=== PATIENT | male | born 1930 | race Caucasian/White ===

== ENCOUNTER 2018-02-11 12:04 | Observation (INO) | payer MEDICARE ==
[2018-02-11] MEDS ORDERED: ONDANSETRON HCL IV 4 MG/2 ML VIAL IV ONE (12:41)
[2018-02-11] MEDS ORDERED: SODIUM CHLORIDE 0.9% 500 ML IV ONE (12:41)
[2018-02-11] MEDS ORDERED: ONDANSETRON HCL IV 4 MG/2 ML VIAL IVP ONE (12:42)
[2018-02-11] MEDS ORDERED: HYDROMORPHONE HCL 2 MG/ML VIAL IVP ONE ×2 (12:42→15:01)
--- NOTE | 2018-02-11 12:45 | Emergency Department Record ---
History of Present Illness - General Chief Complaint: Abdominal Pain Stated Complaint: ABDOMINAL PAIN Time Seen by Provider: 02/11/18 12:38 Source: Patient Mode of Arrival: Ambulatory Limitations: No limitations - History of Present Illness Initial Comments: The patient is here due to AP for 16 hours. The pain is an aching cramping pain around the umbilicus which is nonradiating. He has had nausea and vomiting with it but no dysuria, or back pain. 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 The onset of the pain was after eating. He also has not taken any of his BP medicines today. MD Complaint: Abdominal pain Onset/Timin -: Hour(s) Location: Periumbilical Severity scale (1-10): 7 Quality: Aching, Dull Consistency: Constant Improves With: Nothing Worsens With: Nothing - Related Data Home Medications Medication Instructions Recorded Confirmed Last Taken Aspirin/Dipyridamole [Aggrenox 25 1 each PO BID 02/11/18 02/11/18 Unknown mg-200 mg Capsule] Ergocalciferol (Vitamin D2) 50,000 unit PO WEEKLY 02/11/18 02/11/18 Unknown [Vitamin D2] Finasteride [Proscar] 5 mg PO DAILY 02/11/18 02/11/18 Unknown Isosorbide Mononitrate [Imdur] 20 mg PO BID 02/11/18 02/11/18 Unknown Losartan Potassium [Cozaar] 50 mg PO DAILY 02/11/18 02/11/18 Unknown Metoprolol Tartrate [Lopressor] 50 mg PO BID 02/11/18 02/11/18 Unknown Simvastatin [Zocor] 40 mg PO QHS 02/11/18 02/11/18 Unknown Tamsulosin HCl [Flomax] 0.4 mg PO DAILY 02/11/18 02/11/18 Unknown Tiotropium Br/Olodaterol HCl 2 puff IH DAILY 02/11/18 02/11/18 Unknown [Stiolto Respimat Inhal [place]] Allergies Allergy/AdvReac Type Severity Reaction Status Date / Time No Known Drug Allergies Allergy Verified 02/11/18 12:25 Travel Screening - Travel/Exposure Within Last 30 Days Have you traveled within the last 30 days?: No - Travel/Exposure Within Last Year Have you traveled outside the [place] in the last year?: Yes Location Detail:: [place] - Additonal Travel Details Have you been exposed to anyone with a communicable illness?: No - Travel Symptoms Symptom Screening: None, Vomiting Review of Systems Constitutional: Denies: Chills, Fever Eyes: Denies: Eye discharge ENT: Denies: Congestion Respiratory: Denies: Cough, Dyspnea Past Medical History - SOCIAL HISTORY Smoking Status: Never smoker Alcohol Use: None Drug Use: None - RESPIRATORY Hx Respiratory Disorders: Yes Hx Pneumonia: Yes - CARDIOVASCULAR Hx Cardio Disorders: Yes Hx Hypertension: Yes Comment:: Disecting Aortal Anerysm. - NEURO Hx Neuro Disorders: No - GI Hx GI Disorders: No - Hx Genitourinary Disorders: Yes Hx Prostate Problems: Yes - ENDOCRINE Hx Endocrine Disorders: No - MUSCULOSKELETAL Hx Musculoskeletal Disorders: No - PSYCH Hx Psych Problems: No - HEMATOLOGY/ONCOLOGY Hx Hematology/Oncology Disorders: No Family Medical History Any Significant Family History?: No Physical Exam - General General Appearance: Alert, Oriented x3, Cooperative, No acute distress - Head Head exam: Atraumatic, Normocephalic, Normal inspection - Eye Eye exam: Normal appearance, PERRL - Neck Neck exam: Normal inspection, Full ROM. negative: Tenderness - Respiratory Respiratory exam: Normal lung sounds bilaterally. negative: Respiratory distress - Cardiovascular Cardiovascular Exam: Regular rate, Normal rhythm, Normal heart sounds - GI/Abdominal GI/Abdominal exam: Soft, Normal bowel sounds, Tenderness (There is mild mid abdominal and RUQ tenderness with with mild distension.). negative: Rebound, Rigid - Extremities Extremities exam: Normal inspection, Full ROM, Normal capillary refill, Other ( DP pulses are 2+ and equal bilaterally.). negative: Tenderness Course Vital Signs 02/11/18 12:06 Temperature 97.8 F Pulse Rate 91 H Respiratory 18 Rate Blood Pressure 180/117 Pulse Ox 94 L - Reevaluation(s) Reevaluation #1: The patient is doing well at this time. His pain is improved. I did discuss the CT with the Radiologist and it appears the patient has signs of Cholecystitis. 02/11/18 14:53 Reevaluation #2: I did discuss the CT results with Dr. Baca. He will admit the patient overnight for surgery tomorrow. 02/11/18 15:18 Medical Decision Making - Data Complexity MDM Data: Labs Ordered and/or Reviewed, X-Ray Ordered and/or Reviewed - Lab Data Result diagrams: 02/11/18 12:56 02/11/18 12:56 - Radiology Data Radiology results: Report reviewed (Abd CT: GB wall thickening with pericholecystic fluid and small stones, consistent with acute Choly. Type B dissection (chronic). CXR: Neg for acute dz.) Disposition Disposition: Admit Clinical Impression: Cholecystitis Disposition: Still a Patient at [facility] Decision to Admit: Admit from ER Decision to Admit Date: 02/11/18 Decision to Admit Time: 15:36 Accepting Physician: Keven Time Discussed w/Accepting Physician: 15:37 Condition: (2) Stable Time of Disposition: 15:37 Quality - Quality Measures Quality Measures: N/A - Blood Pressure Screening View Details: Yes Does Patient Have Any of the Following: Active Dx of HTN Blood Pressure Classification: Hypertensive Reading Systolic Measurement: 180 Diastolic Measurement: 117 Screening for High Blood Pressure: Patient Exclusion, Hx of HTN [G9744]
[2018-02-11 13:08] LABS: HEMATOCRIT 48.5 % (42.0-52.0); HEMOGLOBIN 16.7 gm/dl (14.0-18.0); MEAN CELL VOLUME 93.4 fl (81-97); MEAN CORPUSCULAR HEMOGLOBIN 32.2 pg (27-33); MEAN CORPUSCULAR HGB CONC 34.4 g/dl (32-36); MEAN PLATELET VOLUME 11.6 fl (7.4-10.4); PLATELET COUNT 182 K/uL (130-400); RED BLOOD COUNT 5.19 M/uL (4.40-5.70); RED CELL DISTRIBUTION WIDTH 12.7 % (11.5-14.5); WHITE BLOOD COUNT W/O DIFF 14.5 K/uL (4.2-12.2)
[2018-02-11 13:17] LABS: BLOOD UREA NITROGEN 20 mg/dL (8-23); EST GLOMERULAR FILTRATION RATE > 60 mL/min; TOTAL PROTEIN 7.6 g/dL (6.6-8.7)
[2018-02-11 13:18] LABS: INR 1.1; PARTIAL THROMBOPLASTIN TIME 27.5 SECONDS (24.5-39.1); PROTHROMBIN TIME (PATIENT) 10.7 SECONDS (9.5-12.1)
[2018-02-11 13:19] LABS: GLUCOSE,RANDOM 132 mg/dL (74-109)
[2018-02-11] MEDS ORDERED: METOPROLOL TART 50 MG TABLET PO ONE (13:20)
[2018-02-11 13:22] LABS: ALBUMIN 4.3 g/dL (4.0-5.0); ALKALINE PHOSPHATASE 80 U/L (40-129); ALT/SGPT 11 U/L (<41); AST/SGOT 16 U/L (10.0-50.0); LIPASE 35 U/L (13-60)
[2018-02-11 13:23] LABS: BILIRUBIN,DIRECT < 0.2 mg/dL (0-0.3)
[2018-02-11] MEDS ORDERED: LOSARTAN POTASSIUM 25 MG TABLET PO ONE (13:23)
[2018-02-11] MEDS ORDERED: LOSARTAN POTASSIUM 25 MG TABLET PO SCH (13:30)
[2018-02-11 14:12] LABS: URINE APPEARANCE SL CLOUDY; URINE BILIRUBIN NEGATIVE (NEGATIVE); URINE BLOOD SMALL (NEGATIVE); URINE COLOR YELLOW; URINE GLUCOSE (UA) NEGATIVE (NEGATIVE); URINE KETONE 40 mg/dL (NEGATIVE); URINE LEUKOCYTE ESTERASE NEGATIVE (NEGATIVE); URINE NITRITE NEGATIVE (NEGATIVE); URINE UROBILINOGEN 0.2 E.U./dL (0.20 - 1.00)
[2018-02-11 14:18] LABS: URINE BACTERIA NONE SEEN; URINE EPITHELIAL CELLS 0 - 2 (FEW); URINE MUCUS LIGHT; URINE WBC 0 - 2 (0-2/hpf)
[2018-02-11] MEDS ORDERED: 0.9 % SODIUM CHLORIDE 1,000 ML BAG IV ONE (15:01)
[2018-02-11] MEDS ORDERED: LIDOCAINE 2% MDV (20MG/ML) 20ML VIAL IV ONE (16:17)
[2018-02-11] MEDS ORDERED: PROPOFOL 10 MG/ML VIAL IV ONE (16:17)
[2018-02-11] MEDS ORDERED: DESFLURANE 240 ML BTL INH ONE (16:17)
[2018-02-11] MEDS ORDERED: ROCURONIUM BROMIDE 50MG/5ML VIAL IV ONE (16:17)
[2018-02-11] MEDS ORDERED: SUGAMMADEX SODIUM 200 MG/2 ML VIAL IV ONE ×2 (16:17)
[2018-02-11] MEDS ORDERED: PNEUM 13-VAL/PF 0.5 ML IM ONE (16:56)
[2018-02-11] MEDS ORDERED: HYDROMORPHONE HCL 2 MG/ML VIAL IV PRN (16:57)
[2018-02-11] MEDS ORDERED: ONDANSETRON HCL IV 4 MG/2 ML VIAL IVP PRN (16:57)
[2018-02-11] MEDS: 0.9 % SODIUM CHLORIDE 1000ML 1,000 ML IV PRN (17:29)
[2018-02-11] MEDS: CEFOTETAN DISODIUM 1 G in 0.9 % SODIUM CHLORIDE 100ML 100 ML IVPB SCH (17:36)
[2018-02-11] MEDS: STIOLTO RESPIMAT MC SCH (18:35)
[2018-02-11] MEDS: PROSCAR 5 MG MC SCH (18:35)
[2018-02-11] MEDS: ISOSORBIDE MONONITRATE 20 MG TABLET PO SCH (22:06)
[2018-02-11] MEDS: METOPROLOL TART 50 MG TABLET PO SCH (22:06)
[2018-02-12] MEDS: CEFOTETAN DISODIUM 1 G in 0.9 % SODIUM CHLORIDE 100ML 100 ML IVPB SCH (04:26)
[2018-02-12] MEDS: 0.9 % SODIUM CHLORIDE 1000ML 1,000 ML IV PRN (04:28)
--- NOTE | 2018-02-12 07:40 | CT SCAN REPORT ---
EXAM: POST CONTRAST CT OF THE ABDOMEN AND PELVIS HISTORY: PERIUMBILICAL ABDOMINAL PAIN, KNOWN HISTORY OF DISSECTING AORTIC ANEURYSM. TECHNIQUE: Post contrast CT of the abdomen and pelvis was obtained, Omnipaque 300 intravenous contrast agent utilized. Comparison: Noncontrast CT chest 03/20/17. FINDINGS: Bibasilar atelectasis. Aortic valve calcification, partially seen. The gallbladder appears distended with suggestion of mild wall thickening, pericholecystic fat stranding, and small internal densities possibly representing stones. Unremarkable appearance of the liver and spleen. No definite dilatation of the common bile duct. The adrenal glands appear unremarkable. Minimal fatty atrophy of the pancreas. Symmetric renal perfusion. No hydronephrosis. Sigmoid colon diverticulosis without evidence of acute diverticulitis. Normal appendix. No focal colonic thickening or inflammatory changes. Scattered colonic stool. The stomach and small bowel are nondilated. No free air or free fluid in the abdomen or pelvis. Prominent appearing prostate gland. The urinary bladder is mildly distended. There is an aortic dissection extending from the descending thoracic aorta ( incompletely visualized) and extending along the entire course of the abdominal aorta and along the right common iliac artery, right external iliac artery, to the level of the right common femoral artery. Aneurysmal dilatation of the dissected aorta, measuring approximately 3.9 cm AP x 4.8 cm transverse at the level of the diaphragm, 3.4 x 2.7 cm at the level of the renal arteries, and 5.6 x 4.7 cm at the infrarenal segment. 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 There is partial thrombosis along the course of what appears to represent the false lumen. The celiac, superior mesenteric, and inferior mesenteric arteries arise from the true lumen. Both renal arteries appear to arise from the true lumen. There is prominent plaque extending into the proximal superior mesenteric artery with likely less than 50% stenosis. The remainder of the abdominal arteries appear patent. Multilevel thoracolumbar spine degenerative changes. No definite acute osseous findings. IMPRESSION: 1. SUGGESTION OF CHOLELITHIASIS WITH GALLBLADDER WALL THICKENING AND PERICHOLECYSTIC FAT STRANDING; APPEARANCE SUSPICIOUS FOR ACUTE CHOLECYSTITIS. THIS COULD BE FURTHER CHARACTERIZE WITH ULTRASOUND. 2. 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 THE SUPRARENAL ABDOMINAL AORTA APPEARS SIMILAR IN CALIBER FROM NONCONTRAST CT COMPARISON ON 03/20/17. NO OTHER RELEVANT COMPARISONS ARE AVAILABLE. 3. SIGMOID COLON DIVERTICULOSIS WITHOUT EVIDENCE OF ACUTE DIVERTICULITIS. JOB NUMBER: [id number] [facility]
--- NOTE | 2018-02-12 07:43 | RADIOLOGY REPORT ---
EXAM: CHEST, TWO VIEWS HISTORY: UNPRODUCTIVE COUGH FOR TWO WEEKS. TECHNIQUE: Two views of the chest were obtained. Comparison: 09/14/16. FINDINGS: The heart is not enlarged. There is aortic ectasia and tortuosity. Atherosclerotic calcifications. No focal consolidation or pleural effusion. Calcified pleural plaques are noted. IMPRESSION: NO ACUTE PROCESS. CALCIFIED PLEURAL PLAQUES. JOB NUMBER: [id number] [facility]
[2018-02-12] MEDS ORDERED: METOCLOPRAMIDE 10 MG TABLET PO ONE (08:05)
[2018-02-12] MEDS ORDERED: FAMOTIDINE 20MG TABLET PO ONE (08:05)
[2018-02-12] MEDS ORDERED: MECLIZINE 25 MG TABLET PO ONE (08:06)
[2018-02-12] MEDS ORDERED: ACETAMINOPHEN 1,000 MG/100 ML BTL IVPB ONE (08:07)
[2018-02-12] MEDS: METOPROLOL TART 50 MG TABLET PO SCH (09:27)
[2018-02-12] MEDS: ISOSORBIDE MONONITRATE 20 MG TABLET PO SCH (09:28)
[2018-02-12] MEDS ORDERED: PANTOPRAZOLE SODIUM IV 40 MG VIAL IV SCH (10:00)
[2018-02-12] MEDS ORDERED: TAMSULOSIN HCL 0.4 MG CAP.ER.24H PO SCH (10:00)
[2018-02-12] MEDS ORDERED: LOSARTAN POTASSIUM 25 MG TABLET PO SCH (10:00)
[2018-02-12] MEDS: PROSCAR 5 MG MC SCH (10:01)
[2018-02-12] MEDS: STIOLTO RESPIMAT MC SCH (10:01)
[2018-02-12] MEDS ORDERED: IPRATROPIUM/ALBUTEROL (0.5MG/3MG) NEB INH ONE (11:31)
[2018-02-12] MEDS ORDERED: HYDROMORPHONE HCL 2 MG/ML VIAL IVP PRN (12:20)
[2018-02-12] MEDS ORDERED: HYDROCODONE/APAP 5/325MG TABLET PO PRN ×2 (12:20)
[2018-02-12] MEDS ORDERED: ONDANSETRON HCL IV 4 MG/2 ML VIAL IVP PRN (12:20)
[2018-02-12] MEDS: RINGERS SOLUTION,LACTATED 1,000 ML IV SCH ×2 (13:36→21:03)
--- NOTE | 2018-02-12 13:40 | History and Physical Report ---
DATE: 02/12/2018 CHIEF COMPLAINT: Abdominal pain. HISTORY OF CHIEF COMPLAINT: The patient is an 87-year-old male who states that he has had about a 16- to 24-hour history of abdominal pain. This was in his epigastric region with radiation to his right upper quadrant. He was nauseated but did not vomit. He has not been eating today due to the pain. He says his bowels have been functioning without difficulty. He has had a few other twinges in the past but nothing like this. Therefore, he came into [facility] ER. Full workup was done. This did include CT scan as well as laboratory values. CT scan did show findings consistent with acute cholecystitis. It also did reveal a dissecting aortic aneurysm. He states that this has been chronic for him since 1999 and has been stable. He saw Dr. Najera up in [place] and he undergoes a CT scan every [address] scan was compared to 2017 and the aneurysm is unchanged. He states that he is much more comfortable this morning but still has some discomfort. PAST MEDICAL HISTORY: Hypertension, chronic type B aortic aneurysm, prostate cancer. PAST SURGICAL HISTORY: Prostatectomy. CURRENT MEDICATIONS: 1. Aggrenox. 2. Vitamin D. 3. Imdur. 4. Cozaar. 5. Lopressor. 6. Zocor. 7. Proscar. ALLERGIES: No known medical allergies. SOCIAL HISTORY: He denies any tobacco or alcohol history. PHYSICAL EXAMINATION: VITAL SIGNS: Stable. He is afebrile. His blood pressure was 180/117 and this was treated in the ER. Laboratory values did reveal a white count of 14,000. His liver enzymes in the emergency room were normal. HEART: Regular. LUNGS: Decreased. ABDOMEN: Soft. Mildly obese. He did have a small incarcerated umbilical hernia noted. He does have right upper quadrant tenderness with deep palpation. I did review his imaging studies. IMPRESSION AND PLAN: Acute cholecystitis. We did discuss cholecystectomy versus medical management. I also discussed his case with Anesthesia secondary to his prior history of aneurysm. Due to instability, we will keep him here and plan on laparoscopic cholecystectomy this morning. Risks include bleeding, infection, ductal injury, possible conversion to open, postoperative bile leak. He understands this fully. Thank you for this referral. PINEDA
[2018-02-12] MEDS ORDERED: METOPROLOL 100 MG PO SCH (22:00)
[2018-02-12] MEDS ORDERED: ISOSORBIDE MONONITRATE 20 MG PO SCH (22:00)
[2018-02-13] MEDS: RINGERS SOLUTION,LACTATED 1,000 ML IV SCH (05:07)
--- NOTE | 2018-02-13 08:39 | Operative Note ---
DATE OF SURGERY: 02/11/2018 Surgeon: Nik Baca DO PREOPERATIVE DIAGNOSIS: Acute cholecystitis. POSTOPERATIVE DIAGNOSIS: Acute cholecystitis. OPERATION: Laparoscopic cholecystectomy. Indication: The patient is an 87-year-old male who presented and was admitted to the hospital yesterday for ongoing abdominal pain. Workup was consistent with acute cholecystitis. They had been following a type B aortic dissection for the last 17 years, and this was stable. We did discuss cholecystectomy. Risks, benefits, and alternatives were discussed. Risks include bleeding, infection, ductal injury, possible conversion to open, postoperative bile leak. He had been on Aggrenox and we discussed postop bleeding and oozing. PROCEDURE: Thereafter, consent was signed and questions answered. He was taken to the operating room and placed in a supine position. General anesthesia was administered per the department of anesthesia. The patient's abdomen was prepped and draped in the usual sterile fashion. The supraumbilical region was anesthetized with a total of 2 mL of 0.25% Sensorcaine with epinephrine. A 2 cm supraumbilical incision was made. This was carried down to the anterior rectus fascia. This was incised. Alvaro clamps were placed on the fascial edges and brought up into the wound. Stay sutures of 0 Vicryl were placed. Posterior rectus sheath was identified and incised. The peritoneal cavity was entered bluntly. At this time, a 10 mm blunt Suly port was placed. Adequate pneumoperitoneum was established. Under direct visualization, additional 5 mm epigastric and two 5 mm right subcostal ports were placed. The gallbladder was covered with dense omentum. This was peeled away exposing an acutely inflamed gallbladder. This was very tense and distended. At this time, a Biermann needle was used to decompress the gallbladder of about 60 mL of bilious fluid. We were able to grasp this with traumatic graspers. This was retracted in a cephalad and lateral direction. Visualization was somewhat limited despite changing to an angled lens. Therefore, an additional 5 mm port was placed to hold the transverse colon down. This gave us excellent visualization. Using mainly suction dissection, the hepatocystic triangle was thoroughly dissected out. There was intense inflammatory process but this was quickly dissected free. The distal half of the gallbladder was released from the cystic plate. The cystic duct and cystic artery were clearly identified. These were each doubly clipped and cut in a standard fashion. The gallbladder essentially peeled off the liver bed due to the acute nature. This was placed in an EndoCatch bag and brought out through the umbilical port. Right upper quadrant was irrigated with approximately 1000 mL of sterile saline. This was aspirated until clear. The liver bed was covered with FloSeal secondary to some mild oozing. There was hemostasis noted. The patient was leveled out. The pneumoperitoneum was released. All ports were removed. The fascia was closed with 0 Vicryl in a [id number] fashion. The skin at all 5 ports was closed with 4-0 Vicryl. The patient was taken to the recovery room in satisfactory condition. FINDINGS AT THE TIME OF SURGERY: Acute cholecystitis. CC: DO PINEDA Browning
[2018-02-13] MEDS ORDERED: TAMSULOSIN 0.4 MG PO SCH (10:00)
[2018-02-13] MEDS ORDERED: PATIENT OWN MED: LOSARTAN 25 MG PO SCH (10:00)
== END 2018-02-13 09:45 | disposition home or self-care (01) ==
LOC: ER 12:04 → MEDSURG 16:16 → INTOOBSV 16:16
PROVIDERS: ADMIT Surgery; ATTEND Surgery
DX: K81.0 Acute cholecystitis (principal); I10 Essential (primary) hypertension; I48.91 Unspecified atrial fibrillation; Z79.01 Long term (current) use of anticoagulants; R05 Cough; I71.01 Dissection of thoracic aorta; G45.9 Transient cerebral ischemic attack, unspecified
CPT/HCPCS: 71046; 74177; 80048; 80076; 81001; 83690; 85027; 85610; 85730; 93005; 93010; 94640; 96374; 96375; 96376; 99285; J2405; J3490; J7120